=== PATIENT | male | born 1955 | race Caucasian/White ===

== ENCOUNTER 2019-05-17 03:23 | Inpatient (IN) ==
[2019-05-17] MEDS ORDERED: *HR* Ticagrelor 90 MG TABLET ONE (03:31)
[2019-05-17] MEDS ORDERED: *HR* Heparin 5,000 UNIT/ML VIAL ONE (03:31)
[2019-05-17] MEDS ORDERED: *HR* Heparin 5,000 UNIT/ML VIAL IVP ONE (03:35)
[2019-05-17] MEDS ORDERED: *HR* Ticagrelor 90 MG TABLET PO ONE (03:35)
[2019-05-17] MEDS ORDERED: Nitroglycerin 0.4 MG TAB.SUBL SL ONE (03:42)
[2019-05-17] MEDS: 0.9 % Sodium Chloride 500 ML IVC SCH ×2 (03:43→19:24)
[2019-05-17] MEDS: Nitroglycerin 0.4 MG TAB.SUBL SL SCH ×3 (03:48→07:19)
[2019-05-17] MEDS ORDERED: 0.9 % Sodium Chloride 2,000 ML ONE (03:52)
[2019-05-17] MEDS ORDERED: Nitroglycerin 1,000 MCG/10 ML VIAL IV ONE (03:52)
[2019-05-17] MEDS ORDERED: Heparin 1,000 UNITS/500 mL 500 ML ONE (03:52)
[2019-05-17] MEDS ORDERED: *HR* Heparin 10,000 UNIT/10 ML VIAL ONE (03:52)
[2019-05-17] MEDS ORDERED: ISOVUE-370 200 ML INFUS..BTL ONE ×2 (03:52→05:02)
[2019-05-17 04:01] LABS: Basophils % 0.3 %; Eosinophils # 0.2 K/mcL (0.0-0.6); Eosinophils % 1.7 %; Hematocrit 45.7 % (37.5-50.1); Hemoglobin 14.8 g/dL (12.9-16.9); Immature Granulocytes % 0.8 % (0-4); Lymphocytes # 1.6 K/mcL (0.6-4.6); Lymphocytes % 12.3 %; Mean Corpuscular HGB Conc 32.4 g/dL (31.6-35.5); Mean Corpuscular Hemoglobin 30.3 pg (28.0-33.3); Mean Corpuscular Volume 93.6 fL (83.0-100.0); Monocytes # 0.9 K/mcL (0.0-1.3); Monocytes % 7.2 %; Neutrophils # 10.1 K/mcL (1.6-8.9); Platelet Count 222 K/mcL (140-400); Red Blood Count 4.88 M/mcL (4.19-5.50); Segmented Neutrophils % 77.7 %
[2019-05-17] MEDS ORDERED: *HR* Midazolam HCl 2 MG/2 ML VIAL ONE (04:08)
[2019-05-17] MEDS ORDERED: *HR* FentaNYL (PF) 100 MCG/2 ML VIAL ONE (04:09)
[2019-05-17 04:13] LABS: INR 0.9; Prothrombin Time 10.2 Seconds (9.4-12.1)
[2019-05-17 04:16] LABS: Activated Partial Thrombo Time 26.6 Seconds (26.0-36.0)
[2019-05-17 04:22] LABS: BUN/Creatinine Ratio 14 (6-26); Blood Urea Nitrogen 17 mg/dL (8-23); Calcium 9.4 mg/dL (8.6-10.3); Carbon Dioxide 27 mEq/L (23-29); Chloride 102 mEq/L (98-107); Glucose 165 mg/dL (70-105); Magnesium 1.9 mg/dL (1.6-2.6); Osmolality,Calculated 293 (280-300); Potassium 4.2 mEq/L (3.5-5.1); Sodium 139 mEq/L (136-145); eGFR For African Americans > 60 (> 60); eGFR For Non-African Americans > 60 (> 60)
[2019-05-17] MEDS ORDERED: Tirofiban 12.5 MG/250ML 12.5 MG/250 ML BAG ONE (04:22)
[2019-05-17] MEDS ORDERED: niCARdipine 20 MG/200 ML MLS IVC ONE (04:26)
[2019-05-17 04:28] LABS: Troponin I 0.08 ng/mL (< 0.04)
[2019-05-17] MEDS ORDERED: D5% in Water 250 ML ONE (04:32)
[2019-05-17] MEDS ORDERED: *HR* Norepinephrine 4 MG/4 ML VIAL IVC ONE (04:32)
[2019-05-17] MEDS ORDERED: *HR* Atropine Sulfate 1 MG/10 ML SYRINGE ONE (04:57)
[2019-05-17 06:21] LABS: Chol/HDL Ratio 7.9 (0-4.9); Cholesterol 286 mg/dL (< 200); HDL Cholesterol 36 mg/dL (40-59); LDL Cholesterol,Calculated 199 mg/dL (0-99); Triglycerides 257 mg/dL (< 150)
[2019-05-17 07:56] LABS: Estimated Average Glucose 131 mg/dl
[2019-05-17] MEDS: Aspirin Enteric Coated 81 MG Tablet PO SCH (11:18)
[2019-05-17] MEDS: *HR* Ticagrelor 90 MG TABLET PO SCH (19:22)
[2019-05-18 06:48] LABS: BUN/Creatinine Ratio 18 (6-26); Blood Urea Nitrogen 15 mg/dL (8-23); Carbon Dioxide 23 mEq/L (23-29); Chloride 103 mEq/L (98-107); Glucose 107 mg/dL (70-105); Osmolality,Calculated 279 (280-300); Potassium 4.1 mEq/L (3.5-5.1); Sodium 134 mEq/L (136-145); Troponin I 32.26 ng/mL (< 0.04); eGFR For African Americans > 60 (> 60); eGFR For Non-African Americans > 60 (> 60)
[2019-05-18 07:16] LABS: Basophils % 0.2 %; Eosinophils # 0.1 K/mcL (0.0-0.6); Eosinophils % 1.2 %; Hematocrit 40.5 % (37.5-50.1); Hemoglobin 13.2 g/dL (12.9-16.9); Immature Granulocytes % 0.5 % (0-4); Lymphocytes # 2.3 K/mcL (0.6-4.6); Mean Corpuscular HGB Conc 32.6 g/dL (31.6-35.5); Mean Corpuscular Hemoglobin 29.9 pg (28.0-33.3); Mean Corpuscular Volume 91.6 fL (83.0-100.0); Monocytes # 1.1 K/mcL (0.0-1.3); Monocytes % 9.8 %; Neutrophils # 7.5 K/mcL (1.6-8.9); Platelet Count 186 K/mcL (140-400); Red Blood Count 4.42 M/mcL (4.19-5.50); Red Cell Distribution Width 12.9 % (11.5-14.5); Segmented Neutrophils % 67.3 %; White Blood Count 11.1 K/mcL (4.3-11.1)
[2019-05-18] MEDS: Aspirin Enteric Coated 81 MG Tablet PO SCH (08:35)
[2019-05-18] MEDS: *HR* Ticagrelor 90 MG TABLET PO SCH (08:37)
[2019-05-18] MEDS ORDERED: lisinopriL 5 MG TABLET PO SCH (09:00)
[2019-05-18] MEDS ORDERED: 0.9 % Sodium Chloride 500 ML IVC SCH (10:58)
[2019-05-18 11:47] VITALS: BP 104/89
[2019-05-18] MEDS ORDERED: FLU Vac QV 19-20 (6Month+)/PF 0.5 ML SYRINGE IM ONE (16:17)
[2019-05-18] MEDS ORDERED: *HR* Ticagrelor 90 MG TABLET PO SCH (21:00)
[2019-05-19] MEDS ORDERED: Aspirin Enteric Coated 81 MG Tablet PO SCH (09:00)
[2019-05-19] MEDS ORDERED: lisinopriL 5 MG TABLET PO SCH (09:00)
== END 2019-05-18 17:00 | disposition home or self-care (01) | DRG 247 ==
LOC: EMEROOARM 03:23 → ICNU 03:52 → 2NENU 05-18 12:46
PROVIDERS: ADMIT Internal Medicine; ATTEND Internal Medicine Cardiovascular Disease